=== PATIENT | male | born 1960 | race African-American/Black ===

== ENCOUNTER 2019-11-14 09:48 | Inpatient (IN) | payer OTHER ==
--- NOTE | 2019-11-14 10:39 | BHS.RME ---
Substance Use & Tx History - Substance Use History Alcohol Substance amount: 2-3 pints Frequency of use: Daily Substance route: Oral Date of Last Use: 11/13/19 Cocaine- Powder Substance amount: with crack, one gram Frequency of use: Daily Substance route: Smoking Date of Last Use: 11/13/19 Marijuana/Hashish Substance amount: 1/8th Frequency of use: Daily Substance route: Smoking Date of Last Use: 11/14/19 Nicotine Substance amount: 5-6 cigs Frequency of use: Daily Substance route: Smoking Date of Last Use: 11/14/19 Synthetic Cannabinoid Substance amount: one joint Frequency of use: Once a month Substance route: Smoking Date of Last Use: 11/12/19 PCP Substance amount: one joint Frequency of use: Once a month Substance route: Smoking Date of Last Use: 09/15/19 - Last Treatment Date of last treatment: 2013 Where was last treatment: Detox Physical/Psych/Mental Status - Behavior General Behavior: Increased activity (restlessness, agitation) Eye Contact: Normal - Cooperativeness Cooperativeness: Cooperative - Thinking Thought Processes: Tight Thought content: Future oriented - Physical Health Problems Is patient presently having any pain?: No Does patient presently have any injuries (include location): No Does patient currently have a fever: No CIWA Nausea/Vomitin-Mild Nausea/No Vomiting Muscle Tremors: 3 Anxiety: 3 Agitation: 4-Moderately Restless Paroxysmal Sweats: 1-Minimal Palms Moist Orientation: 0-Oriented Tacttile Disturbances: 0-None Auditory Disturbances: 0-None Visual Disturbances: 0-None Headache: 0-None Present CIWA-Ar Total Score: 12
[2019-11-14 11:40] VITALS: BMI 18.2
--- NOTE | 2019-11-14 12:07 | HP ---
CIWA Score Nausea/Vomitin-Mild Nausea/No Vomiting Muscle Tremors: 3 Anxiety: 3 Agitation: 4-Moderately Restless Paroxysmal Sweats: 1-Minimal Palms Moist Orientation: 0-Oriented Tacttile Disturbances: 0-None Auditory Disturbances: 0-None Visual Disturbances: 0-None Headache: 0-None Present CIWA-Ar Total Score: 12 - Admission Criteria OASAS Guidelines: Admission for Medically Managed Detox: Requires at least one of the followin. CIWA greater than 12 2. Seizures within the past 24 hours 3. Delirium tremens within the past 24 hours 4. Hallucinations within the past 24 hours 5. Acute intervention needed for co occurring medical disorder 6. Acute intervention needed for co occurring psychiatric disorder 7. Severe withdrawal that cannot be handled at a lower level of care (continued vomiting, continued diarrhea, abnormal vital signs) requiring intravenous medication and/or fluids 8. Admitting History and Physical - Admission History of Present Illness: Mr. Barros is a 59 yo man who presents to [facility] stating "I've got to stop using alcohol". He requests admission to detox. He was last here in 2013. 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 Cocaine- Powder Substance amount: with crack, one gram Frequency of use: Daily Substance route: Smoking Date of Last Use: 11/13/19 First use age 25 y Marijuana/Hashish Substance amount: 1/8th Frequency of use: Daily Substance route: Smoking Date of Last Use: 11/14/19 First use age 14 y Nicotine Substance amount: 5-6 cigs Frequency of use: Daily Substance route: Smoking Date of Last Use: 11/14/19 First use age 14 y Synthetic Cannabinoid Substance amount: one joint Frequency of use: Once a month Substance route: Smoking Date of Last Use: 11/12/19 PCP Substance amount: one joint Frequency of use: Once a month Substance route: Smoking Date of Last Use: 09/15/19 First use ag 58 y - Last Treatment Date of last treatment: 2013 Where was last treatment: Detox History Source: Patient Limitations to Obtaining History: No Limitations - Smoking History Smoking history: Current every day smoker Have you smoked in the past 12 months: Yes Aproximately how many cigarettes per day: 10 - Alcohol/Substance Use Hx Alcohol Use: Yes Admission ROS S - HPI Allergies/Adverse Reactions: Allergies Allergy/AdvReac Type Severity Reaction Status Date / Time Fish Containing Products Allergy Severe Difficulty Verified 11/14/19 11:33 Breathing Exam Limitations: No Limitations - Ebola screening Have you traveled outside of the country in the last 21 days: No Have you been sick,other than usual withdrawal symptoms: No Do you have a fever: No - Review of Systems Constitutional: Changes in sleep (trouble falling and staying asleep), Unintentional Wgt. Loss (60 lbs in one year) EENT: reports: Blurred Vision (uses glasses for distance, not with him), Other (no teeth) Respiratory: reports: No Symptoms reported Cardiac: reports: No Symptoms Reported GI: reports: No Symptoms Reported : reports: No Symptoms Reported Musculoskeletal: reports: Other (frostbite: lost middle and ring finger left hand) Integumentary: reports: No Symptoms Reported Neuro: reports: No Symptoms reported Endocrine: reports: No Symptoms Reported Hematology: reports: No Symptoms Reported Psychiatric: reports: No Sypmtoms Reported Patient History - Patient Medical History Hx Anemia: No Hx Asthma: No Hx Chronic Obstructive Pulmonary Disease (COPD): No Hx Cancer: No Hx Cardiac Disorders: Yes (High Cholestrol) Hx Congestive Heart Failure: No Hx Hypertension: Yes Hx Hypercholesterolemia: No Hx Pacemaker: No HX Cerebrovascular Accident: No Hx Seizures: No Hx Dementia: No Hx Diabetes: Yes Hx Gastrointestinal Disorders: No Hx Liver Disease: No Hx Genitourinary Disorders: No Hx Sexually Transmitted Disorders: No Hx Renal Disease (ESRD): No Hx Thyroid Disease: No Hx Human Immunodeficiency Virus (HIV): No (NEGATIVE HX) Hx Hepatitis C: No Hx Depression: No Hx Suicide Attempt: No Hx Bipolar Disorder: No Hx Schizophrenia: No - Patient Surgical History Past Surgical History: Yes Hx Neurologic Surgery: No Hx Cataract Extraction: No Hx Cardiac Surgery: No Hx Lung Surgery: No Hx Breast Surgery: No Hx Breast Biopsy: No Hx Abdominal Surgery: No Hx Appendectomy: No Hx Cholecystectomy: No Hx Genitourinary Surgery: No Hx Section: No Hx Orthopedic Surgery: No Other Surgical History: DUE TO FX OF FACIAL BONE IN 2013 AT [facility] Anesthesia Reaction: No - Reproductive History Patient : (n/a) - Smoking Cessation Smoking history: Current every day smoker Have you smoked in the past 12 months: Yes Aproximately how many cigarettes per day: 10 Cigars Per Day: 0 Hx Chewing Tobacco Use: No Initiated information on smoking cessation: Yes 'Breaking Loose' booklet given: 11/14/19 - Substances abused Alcohol Substance route: Oral Frequency: Daily Amount used: 1-2 pints Age of first use: 14 Date of last use: 11/13/19 Marijuana/Hashish Substance route: Smoking Frequency: Daily Amount used: 8th Age of first use: 14 Date of last use: 11/14/19 Admission Physical Exam BHS - Vital Signs Vital Signs: Vital Signs - 24 hr 11/14/19 11:37 Temperature 95.8 F L Pulse Rate 60 Respiratory 20 Rate Blood Pressure 156/106 H - Physical General Appearance: Yes: Mild Distress, Thin, Other (restless) HEENTM: Yes: EOMI, Hearing grossly Normal, Normocephalic, Normal Voice Respiratory: Yes: Lungs Clear, No Respiratory Distress, No Accessory Muscle Use Neck: Yes: Within Normal Limits, Supple Breast: Yes: Breast Exam Deferred Cardiology: Yes: Regular Rhythm, Regular Rate Abdominal: Yes: Normal Bowel Sounds, Non Tender, Flat, Soft Genitourinary: Yes: Other (deferred) Back: Yes: Normal Inspection Musculoskeletal: Yes: Gait Steady, Other (? scoliosis, leans to left when ambulating) Extremities: Yes: Normal Inspection, Non-Tender Neurological: Yes: Alert, Normal Response, Other (? tardive dyskinesia, excessive mouth movements) Integumentary: Yes: Normal Color, Dry, Warm - Diagnostic (1) Alcohol dependence with withdrawal, uncomplicated Current Visit: Yes Status: Acute Comment: 1. Admit to detox 2. Librium protocol 3. Routine labs (2) Cannabis abuse Current Visit: Yes Status: Acute Comment: 1. Substance use education (3) Nicotine dependence Current Visit: Yes Status: Acute Qualifiers: Nicotine product type: cigarettes Substance use status: uncomplicated Qualified Code(s): F17.210 - Nicotine dependence, cigarettes, uncomplicated Comment: 1. Nicotine replacement therapy 2. Smoking cessation handbook (4) Synthetic cannabinoid abuse Current Visit: Yes Status: Acute Comment: 1. Substance use education while in detox (5) PCP (phencyclidine) abuse Current Visit: Yes Status: Acute Comment: 1. substance use education (6) Diabetes Current Visit: Yes Status: Acute Comment: 1. glu checked in PWC: 101 2. will review outside medication 3. monitor glucose ac and hs (7) HTN (hypertension) Current Visit: Yes Status: Acute Qualifiers: Hypertension type: essential hypertension Qualified Code(s): I10 - Essential (primary) hypertension Comment: 1. monitor vitals 2. reconcile meds (8) Hyperlipidemia Current Visit: Yes Status: Acute Comment: 1. reconcile meds (9) Cocaine dependence Current Visit: No Status: Chronic Comment: 1. substance use education while on detox unit (10) Emphysema of lung Current Visit: No Status: Chronic (11) Abnormal weight loss Current Visit: Yes Status: Acute Comment: 1. supplement diet with Ensure Cleared for Admission S - Detox or Rehab [facility] Level of Care: Medically Managed Detox Regimen/Protocol: Librium Breathalyzer - Breathalyzer Breathalyzer: 0 Urine Drug Screen - Test Device Lot number: [id number] Expiration date: 06/06/21 - Control Is test valid?: Yes - Results Drug screen NEGATIVE: No Urine drug screen results: THC-Marijuana, LULÚ-Cocaine Inpatient Rehab Admission - Rehab Decision to Admit Inpatient rehab admission?: No
[2019-11-14] MEDS ORDERED: MENTHOL/PHENOL 1 EACH UD MM PRN (12:27)
[2019-11-14] MEDS ORDERED: MAG HYDROX/AL HYDROX/SIMETH 30 ML UNIT-DOSE CUP PO PRN (12:27)
[2019-11-14] MEDS ORDERED: METHOCARBAMOL 500 MG TABLET PO PRN (12:27)
[2019-11-14] MEDS ORDERED: chlordiazePOXIDE HCL 25 MG CAPSULE PO PRN (12:27)
[2019-11-14] MEDS ORDERED: NICOTINE POLACRILEX 2 MG GUM BUC PRN (12:27)
[2019-11-14] MEDS ORDERED: ONDANSETRON *ODT* 4 MG TABLET SL PRN (12:27)
[2019-11-14] MEDS ORDERED: MAGNESIUM HYDROX 2400MG/30ML ORAL SUSPENSION 30 ML CUP PO PRN (12:27)
[2019-11-14] MEDS ORDERED: IBUPROFEN 400 MG TABLET (FP) PO PRN (12:27)
[2019-11-14] MEDS ORDERED: MAGNESIUM CITRATE 300 ML BOTTLE PO PRN (12:27)
[2019-11-14] MEDS ORDERED: ACETAMINOPHEN 325 MG TABLET (FP) PO PRN ×2 (12:27)
[2019-11-14] MEDS ORDERED: BISMUTH SUBSALICYLATE 262 MG/15 ML BTL PO PRN (12:27)
[2019-11-14] MEDS: NIFEdipine E.R. 30 MG TABLET PO SCH (13:34)
[2019-11-14] MEDS: hydrOXYzine PAMOATE 25 MG CAPSULE (FP) PO SCH ×3 (13:36→22:49)
[2019-11-14] MEDS ORDERED: ALBUTEROL SO4 HFA INHALER IH SCH (14:00)
[2019-11-14 14:44] LABS: HEMOGLOBIN 12.1 GM/dL (11.7-16.9); MCH 31.2 pg (25.7-33.7); MCHC 33.7 g/dl (32.0-35.9); MEAN CELL VOLUME 92.6 fl (80-96); MEAN PLT VOLUME 7.9 fl (7.5-11.1); PLATELET COUNT 236 K/MM3 (134-434); RBC 3.89 M/mm3 (4.00-5.60); RDW 13.8 % (11.9-15.9); WHITE BLOOD COUNT 6.8 K/mm3 (4.0-10.0)
[2019-11-14] MEDS ORDERED: ALBUTEROL SO4 HFA INHALER IH PRN (14:44)
[2019-11-14 14:55] LABS: ALBUMIN 3.7 g/dl (3.4-5.0); BILIRUBIN,TOTAL 0.2 mg/dL (0.2-1); BLOOD UREA NITROGEN 17.5 mg/dL (7-18); CALCIUM 8.9 mg/dL (8.5-10.1); CREATININE 1.5 mg/dL (0.55-1.3); POTASSIUM 4.2 mmol/L (3.5-5.1)
[2019-11-14] MEDS ORDERED: MASKS NR ONE (17:37)
[2019-11-14] MEDS: chlordiazePOXIDE HCL 25 MG CAPSULE PO SCH ×2 (17:39→22:49)
[2019-11-14] MEDS: ATORVASTATIN CA 10 MG TABLET (FP) PO SCH (22:48)
[2019-11-14] MEDS: MELATONIN 5 MG TABLETS PO SCH (22:49)
[2019-11-14] MEDS: THIAMINE HCL 100 MG TABLET (FP) PO SCH (22:49)
[2019-11-15] MEDS: chlordiazePOXIDE HCL 25 MG CAPSULE PO SCH ×4 (06:34→22:50)
[2019-11-15] MEDS: hydrOXYzine PAMOATE 25 MG CAPSULE (FP) PO SCH ×5 (06:34→22:50)
--- NOTE | 2019-11-15 10:50 | PN ---
S CIWA - CIWA Score Nausea/Vomitin-Mild Nausea/No Vomiting Muscle Tremors: 2 Anxiety: 3 Agitation: 1-Slight > Activity Paroxysmal Sweats: No Perspiration Orientation: 0-Oriented Tacttile Disturbances: 0-None Auditory Disturbances: 0-None Visual Disturbances: 1-Very Mild Sensitivity Headache: 1-Very Mild CIWA-Ar Total Score: 9 S Progress Note (SOAP) Subjective: 59 years old male was admitted on 11/14/19 for alcohol withdrawal sx management treating with librium detox regiment bmi 18.3 glucerna 1 can po tid feels tired resting in bed limited conversation with staff Objective: 11/15/19 11:03 Vital Signs - 24 hr 11/14/19 11/14/19 11/14/19 11:37 12:31 12:53 Temperature 95.8 F L 97.3 F L Pulse Rate 60 64 Respiratory 20 18 Rate Blood Pressure 156/106 H 184/124 H O2 Sat by Pulse 100 96 Oximetry (%) 11/14/19 11/14/19 11/15/19 17:07 20:32 09:00 Temperature 97.7 F 97.5 F L 98.0 F Pulse Rate 62 62 58 L Respiratory 20 18 18 Rate Blood Pressure 176/92 H 151/95 152/103 H O2 Sat by Pulse 96 100 Oximetry (%) Laboratory Tests 11/14/19 11/14/19 11/14/19 11:25 11:25 11:25 WBC 6.8 RBC 3.89 L Hgb 12.1 Hct 36.0 MCV 92.6 MCH 31.2 MCHC 33.7 RDW 13.8 Plt Count 236 MPV 7.9 Sodium 139 Potassium 4.2 Chloride 106 Carbon Dioxide 30 Anion Gap 2 L BUN 17.5 Creatinine 1.5 H Est GFR (CKD-EPI)AfAm 58.22 Est GFR (CKD-EPI)NonAf 50.23 POC Glucometer Random Glucose 98 Calcium 8.9 Total Bilirubin 0.2 AST 19 ALT 17 Alkaline Phosphatase 83 Total Protein 8.0 Albumin 3.7 Syphilis Serology COVID-19 (JERRICA) Hep C Ab Diagnostic HIV Ag/Ab Combo Qual Negative 11/14/19 11/14/19 11/14/19 11:25 11:25 11:25 WBC RBC Hgb Hct MCV MCH MCHC RDW Plt Count MPV Sodium Potassium Chloride Carbon Dioxide Anion Gap BUN Creatinine Est GFR (CKD-EPI)AfAm Est GFR (CKD-EPI)NonAf POC Glucometer Random Glucose Calcium Total Bilirubin AST ALT Alkaline Phosphatase Total Protein Albumin Syphilis Serology Non-reactive COVID-19 (JERRICA) Not detected Hep C Ab Diagnostic <0.1 HIV Ag/Ab Combo Qual 11/14/19 11/14/19 12:08 16:46 WBC RBC Hgb Hct MCV MCH MCHC RDW Plt Count MPV Sodium Potassium Chloride Carbon Dioxide Anion Gap BUN Creatinine Est GFR (CKD-EPI)AfAm Est GFR (CKD-EPI)NonAf POC Glucometer 101 138 Random Glucose Calcium Total Bilirubin AST ALT Alkaline Phosphatase Total Protein Albumin Syphilis Serology COVID-19 (JERRICA) Hep C Ab Diagnostic HIV Ag/Ab Combo Qual bp elevation 11/15/19 11:05 lab noted 11/15/19 11:19 continue procardia clonidine 0.1 mg po prn Assessment: 11/15/19 11:19 alcohol withdrawal Plan: librium regiment
[2019-11-15] MEDS: NIFEdipine E.R. 30 MG TABLET PO SCH (11:07)
[2019-11-15] MEDS: PRENATAL VITAMINS W/ FOLIC ACID TABLET (FP) PO SCH (11:10)
[2019-11-15] MEDS: NICOTINE 7 MG/24 HOURS TOPICAL PATCH TD SCH (11:10)
[2019-11-15] MEDS ORDERED: cloNIDine HCL 0.1 MG TABLET PO PRN (11:17)
--- NOTE | 2019-11-15 12:35 | CONSULT ---
[facility] Psychiatric Consult - Data Date of interview: 11/15/19 Admission source: [facility] Identifying data: Revisit to [facility] and admission to [address] [place] [address] for this 59 y/o AA male self-referred for detoxification treatment. EVELINE issues : alcohol, cannabis/K2, cocaine, phencyclidine, nicotine. Patient is single, no dependents, domiciled, unemployed and supported on SSI benefits. Substance Abuse History: Discussed with the patient. EVELINE profile as follows : Alcohol. Substance amount: 2-3 pints. Frequency of use: Daily. Substance route: Oral. Date of Last Use: 11/13/19. First use age 14 y. No seizures. Blackout months ago. 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 Cocaine- Powder. Substance amount: with crack, one gram. Frequency of use: Daily. Substance route: Smoking. Date of Last Use: 11/13/19. First use age 25 y. Marijuana/Hashish. Substance amount: /. Frequency of use: Daily. Substance route: Smoking. Date of Last Use: 11/14/19. First use age 14 y. Nicotine. Substance amount: 5-6 cigs. Frequency of use: Daily. Substance rout e: Smoking. Date of Last Use: 11/14/19. First use age 14 y. Synthetic Cannabinoid. Substance amount: one joint. Frequency of use: Once a month. Substance route: Smoking. Date of Last Use: 11/12/19. PCP. Substance amount: one joint. Frequency of use: Once a month. Substance route: Smoking. Date of Last Use: 09/15/19. First use ag 58 y. - Last Treatment. Date of last treatment: 2013. Where was last treatment: Detox. History Source: Patient. Limitations to Obtaining History: No Limitations. - Smoking History. Smoking history: Current every day smoker. Have you smoked in the past 12 months: Yes. Approximately how many cigarettes per day: 10. - Alcohol/Substance Use. Hx Alcohol Use: Yes. History of multiple EVELINE treatment failures. Medical History: Medical profile is remarkable for diabetes mellitus, dyslipidemia, hypertension, emphysema and a distant history of surgeries (fracture of right wrist + facial bone). Psychiatric History: Patient is a marginally cooperative and informative historian. He does admit to a history of psychiatric hospitalizations but he is unable to recall names of institutions. Records ([facility]) [facility]. Mr Papo states that he has been diagnosed with schizophrenia and followed at the [facility]PD clinic in [facility], under the care of Dr Hauser, (medication management : mirtazapine, trazodone + haldol + cogentin). Pattern of adherence is unknown : questionable at best. Patient denies history of suicide attempts. Physical/Sexual Abuse/Trauma History: Patient denies. Additional Comment: Urine drug screen results: THC-Marijuana, LULÚ-Cocaine. Noted. Mental Status Exam - Mental Status Exam Alert and Oriented to: Time, Place, Person Cognitive Function: Grossly Intact Patient Appearance: Unkempt, Disheveled Mood: Nervous, Withdrawn, Irritable Affect: Mood Congruent, Constricted Patient Behavior: Fatigued, Guarded Speech Pattern: Clear Voice Loudness: Normal Thought Process: Goal Oriented Thought Disorder: Bizarre Hallucinations: Denies Suicidal Ideation: Denies Homicidal Ideation: Denies Insight/Judgement: Poor Sleep: Poorly, Difficulty falling asleep Appetite: Good Gait/Station: Other (not observed out of bed) Psychiatric Findings - Problem List ([place] 1, 2,3) (1) Alcohol dependence with withdrawal, uncomplicated Current Visit: Yes Status: Acute Comment: 1. Admit to detox 2. Librium protocol 3. Routine labs (2) Marijuana dependence Current Visit: Yes Status: Chronic (3) Cocaine dependence Current Visit: Yes Status: Chronic Comment: 1. substance use education while on detox unit (4) Nicotine dependence Current Visit: Yes Status: Acute Qualifiers: Nicotine product type: cigarettes Substance use status: uncomplicated Qualified Code(s): F17.210 - Nicotine dependence, cigarettes, uncomplicated Comment: 1. Nicotine replacement therapy 2. Smoking cessation handbook (5) PCP (phencyclidine) abuse Current Visit: Yes Status: Chronic Comment: 1. substance use education (6) Synthetic cannabinoid abuse Current Visit: Yes Status: Chronic Comment: 1. Substance use education while in detox (7) Schizoaffective disorder Current Visit: Yes Status: Chronic (8) Non-compliance Current Visit: Yes Status: Chronic Comment: Non adherence to OPD care. - Initial Treatment Plan Initial Treatment Plan: Street Vendor attempted to contact Dr Hauser at [phone] for collateral information (verification of medications) : not available. Records ([facility]) revisited. Psychoeducation. Sleep hygiene. Detoxification in progress. Medications resumed (with patient's consent) as : haldol 2 mg po bid + cogentin 0.5 mg po daily + trazodone 15 mg po hs. Side effects/benefits of these molecules are discussed with the patient. Agreement verbalized by patient. Observation.
[2019-11-15] MEDS: LISINOPRIL 20 MG TABLET (FP) PO SCH (15:58)
[2019-11-15] MEDS ORDERED: MASKS NR ONE (19:58)
[2019-11-15] MEDS: ATORVASTATIN CA 10 MG TABLET (FP) PO SCH (22:47)
[2019-11-15] MEDS: THIAMINE HCL 100 MG TABLET (FP) PO SCH (22:47)
[2019-11-15] MEDS: MELATONIN 5 MG TABLETS PO SCH (22:47)
[2019-11-16] MEDS: chlordiazePOXIDE HCL 25 MG CAPSULE PO SCH ×4 (06:32→23:23)
[2019-11-16] MEDS: hydrOXYzine PAMOATE 25 MG CAPSULE (FP) PO SCH ×5 (06:32→23:23)
[2019-11-16] MEDS: NICOTINE 7 MG/24 HOURS TOPICAL PATCH TD SCH (10:37)
[2019-11-16] MEDS: PRENATAL VITAMINS W/ FOLIC ACID TABLET (FP) PO SCH (10:37)
[2019-11-16] MEDS: LISINOPRIL 20 MG TABLET (FP) PO SCH (10:41)
[2019-11-16] MEDS: NIFEdipine E.R. 30 MG TABLET PO SCH (10:42)
--- NOTE | 2019-11-16 11:58 | PN ---
[facility] CIWA - CIWA Score Nausea/Vomitin-Mild Nausea/No Vomiting Muscle Tremors: 2 Anxiety: 2 Agitation: 2 Paroxysmal Sweats: No Perspiration Orientation: 0-Oriented Tacttile Disturbances: 1-Very Mild Itch/Numbness Auditory Disturbances: 0-None Visual Disturbances: 0-None Headache: 2-Mild CIWA-Ar Total Score: 10 S Progress Note (SOAP) Subjective: alert,irritable,anxious,interrupted sleep,tremor,aching pain Objective: 11/16/19 17:09 Vital Signs Temperature 97.8 F 11/16/19 12:42 Pulse Rate 58 L 11/16/19 12:42 Respiratory Rate 18 11/16/19 12:42 Blood Pressure 125/80 11/16/19 12:42 O2 Sat by Pulse Oximetry (%) 99 11/16/19 12:42 Laboratory Last Values WBC 6.8 K/mm3 (4.0-10.0) 11/14/19 11:25 RBC 3.89 M/mm3 (4.00-5.60) L 11/14/19 11:25 Hgb 12.1 GM/dL (11.7-16.9) 11/14/19 11:25 Hct 36.0 % (35.4-49) 11/14/19 11:25 MCV 92.6 fl (80-96) 11/14/19 11:25 MCH 31.2 pg (25.7-33.7) 11/14/19 11:25 MCHC 33.7 g/dl (32.0-35.9) 11/14/19 11:25 RDW 13.8 % (11.9-15.9) 11/14/19 11:25 Plt Count 236 K/MM3 (134-434) 11/14/19 11:25 MPV 7.9 fl (7.5-11.1) 11/14/19 11:25 Sodium 139 mmol/L (136-145) 11/14/19 11:25 Potassium 4.2 mmol/L (3.5-5.1) 11/14/19 11:25 Chloride 106 mmol/L (98-107) 11/14/19 11:25 Carbon Dioxide 30 mmol/L (21-32) 11/14/19 11:25 Anion Gap 2 MMOL/L (8-16) L 11/14/19 11:25 BUN 17.5 mg/dL (7-18) 11/14/19 11:25 Creatinine 1.5 mg/dL (0.55-1.3) H 11/14/19 11:25 Est GFR (CKD-EPI)AfAm 58.22 11/14/19 11:25 Est GFR (CKD-EPI)NonAf 50.23 11/14/19 11:25 POC Glucometer 101 UNITS (80-120) 11/16/19 16:22 Random Glucose 98 mg/dL (74-106) 11/14/19 11:25 Calcium 8.9 mg/dL (8.5-10.1) 11/14/19 11:25 Total Bilirubin 0.2 mg/dL (0.2-1) 11/14/19 11:25 AST 19 U/L (15-37) 11/14/19 11:25 ALT 17 U/L (13-61) 11/14/19 11:25 Alkaline Phosphatase 83 U/L (45-117) 11/14/19 11:25 Total Protein 8.0 g/dl (6.4-8.2) 11/14/19 11:25 Albumin 3.7 g/dl (3.4-5.0) 11/14/19 11:25 Syphilis Serology Non-reactive (NONREACTIVE) 11/14/19 11:25 COVID-19 (JERRICA) Not detected (Not Detected) 11/14/19 11:25 Hep C Ab Diagnostic <0.1 s/co ratio (0.0-0.9) 11/14/19 11:25 HIV Ag/Ab Combo Qual Negative (NEGATIVE) 11/14/19 11:25 Assessment: 11/16/19 17:10 withdrawal symptom Plan: continue detox librium regimen,bmp repeat in am
[2019-11-16] MEDS: MELATONIN 5 MG TABLETS PO SCH (23:23)
[2019-11-16] MEDS: THIAMINE HCL 100 MG TABLET (FP) PO SCH (23:23)
[2019-11-16] MEDS: ATORVASTATIN CA 10 MG TABLET (FP) PO SCH (23:23)
[2019-11-17] MEDS ORDERED: chlordiazePOXIDE HCL 10 MG CAPSULE PO PRN
[2019-11-17] MEDS: chlordiazePOXIDE HCL 10 MG CAPSULE PO SCH ×2 (06:43→10:34)
[2019-11-17] MEDS: hydrOXYzine PAMOATE 25 MG CAPSULE (FP) PO SCH ×2 (06:43→10:34)
--- NOTE | 2019-11-17 09:16 | PN ---
S CIWA - CIWA Score Nausea/Vomitin-No Nausea/No Vomiting Muscle Tremors: None Anxiety: 2 Agitation: 0-Normal Activity Paroxysmal Sweats: No Perspiration Orientation: 0-Oriented Tacttile Disturbances: 0-None Auditory Disturbances: 0-None Visual Disturbances: 0-None Headache: 0-None Present CIWA-Ar Total Score: 2 BHS Progress Note (SOAP) Subjective: Patient was examined by bedside. Patient was laying in bed and had been eating lunch. Pt. complains of anxiety. No further questions or complaints noted. Objective: 11/17/19 09:15 PE: General: No acute distress, alert and awake MSK: gait normal, pelvis stable, normal range of motion Skin: No lesions or abrasions skin color normal. MS: responds appropriately to questions, oriented x3, pleasant demeanor Last Vital Signs Temp Pulse Resp BP Pulse Ox 97.0 F L 74 18 121/88 100 11/17/19 08:15 11/17/19 08:15 11/17/19 08:15 11/17/19 08:15 11/17/19 08:15 CBC,CMP WBC 6.8 K/mm3 (4.0-10.0) 11/14/19 11:25 RBC 3.89 M/mm3 (4.00-5.60) L 11/14/19 11:25 Hgb 12.1 GM/dL (11.7-16.9) 11/14/19 11:25 Hct 36.0 % (35.4-49) 11/14/19 11:25 MCV 92.6 fl (80-96) 11/14/19 11:25 MCH 31.2 pg (25.7-33.7) 11/14/19 11:25 MCHC 33.7 g/dl (32.0-35.9) 11/14/19 11:25 RDW 13.8 % (11.9-15.9) 11/14/19 11:25 Plt Count 236 K/MM3 (134-434) 11/14/19 11:25 MPV 7.9 fl (7.5-11.1) 11/14/19 11:25 Sodium 139 mmol/L (136-145) 11/14/19 11:25 Potassium 4.2 mmol/L (3.5-5.1) 11/14/19 11:25 Chloride 106 mmol/L (98-107) 11/14/19 11:25 Carbon Dioxide 30 mmol/L (21-32) 11/14/19 11:25 Anion Gap 2 MMOL/L (8-16) L 11/14/19 11:25 BUN 17.5 mg/dL (7-18) 11/14/19 11:25 Creatinine 1.5 mg/dL (0.55-1.3) H 11/14/19 11:25 Est GFR (CKD-EPI)AfAm 58.22 11/14/19 11:25 Est GFR (CKD-EPI)NonAf 50.23 11/14/19 11:25 POC Glucometer 93 UNITS (80-120) 11/17/19 06:41 Random Glucose 98 mg/dL (74-106) 11/14/19 11:25 Calcium 8.9 mg/dL (8.5-10.1) 11/14/19 11:25 Total Bilirubin 0.2 mg/dL (0.2-1) 11/14/19 11:25 AST 19 U/L (15-37) 11/14/19 11:25 ALT 17 U/L (13-61) 11/14/19 11:25 Alkaline Phosphatase 83 U/L (45-117) 11/14/19 11:25 Total Protein 8.0 g/dl (6.4-8.2) 11/14/19 11:25 Albumin 3.7 g/dl (3.4-5.0) 11/14/19 11:25 Current Medications Generic Name Dose Route Start Last Admin Trade Name Freq PRN Reason Stop Dose Admin Acetaminophen 650 mg 11/14/19 12:27 Tylenol - PO Q6H PRN PAIN LEVEL 4 - 6 Acetaminophen 650 mg 11/14/19 12:27 Tylenol - PO Q6H PRN FEVER Al Hydroxide/Mg Hydroxide 30 ml 11/14/19 12:27 Mylanta Oral Suspension - PO Q6H PRN DYSPEPSIA Albuterol Sulfate 1 puff 11/14/19 14:44 Ventolin Hfa Inhaler - IH QID PRN ASTHMA Atorvastatin Calcium 10 mg 11/14/19 22:00 11/16/19 23:23 Lipitor - PO Not Given HS KENY Bismuth Subsalicylate 30 ml 11/14/19 12:27 Pepto-Bismol Liquid - PO Q1H PRN DIARRHEA Chlordiazepoxide HCl 10 mg 11/17/19 05:00 11/17/19 06:43 Librium - PO 11/17/19 23:01 Not Given Q4C-SZC KENY Chlordiazepoxide HCl 10 mg 11/18/19 05:00 Librium - PO 11/18/19 17:01 Q12H KENY Chlordiazepoxide HCl 10 mg 11/17/19 00:00 Librium - PO 11/18/19 00:00 Q4H PRN WITHDRAWAL(CONT SUBST) Chlordiazepoxide HCl 10 mg 11/19/19 05:00 Librium - PO 11/19/19 05:01 ONCE@0500 ONE Clonidine 0.1 mg 11/15/19 11:17 11/15/19 13:15 Catapres - PO 0.1 mg Q6H PRN Administration HYPERTENSION Eucalyptus/Menthol/Phenol/Sorbitol 1 each 11/14/19 12:27 Cepastat Lozenge - MM 11/20/19 12:27 Q4H PRN SORE THROAT Hydroxyzine Pamoate 25 mg 11/14/19 14:00 11/17/19 06:43 Vistaril - PO 11/20/19 12:27 Not Given Q4HWA [facility] Ibuprofen 400 mg 11/14/19 12:27 11/14/19 17:42 Motrin - PO 400 mg Q6H PRN Administration PAIN LEVEL 1 - 3 Lisinopril 20 mg 11/15/19 15:15 11/16/19 10:41 Prinivil PO 20 mg DAILY [facility] Administration Magnesium Citrate 300 ml 11/14/19 12:27 Citroma - PO Q48H PRN CONSTIPATION Magnesium Hydroxide 30 ml 11/14/19 12:27 Milk Of Magnesia - PO PRN PRN CONSTIPATION Melatonin 5 mg 11/14/19 22:00 11/16/19 23:23 Melatonin PO Not Given HS [facility] Metformin HCl 1,000 mg 11/15/19 16:30 11/16/19 16:50 Glucophage Xr - PO 1,000 mg DAILY@1630 KENY Administration Methocarbamol 500 mg 11/14/19 12:27 Robaxin - PO 11/20/19 12:27 Q6H PRN MUSCLE SPASMS Nicotine 7 mg 11/15/19 10:00 11/16/19 10:37 Nicoderm Patch - TD Not Given DAILY KENY Nicotine Polacrilex 2 mg 11/14/19 12:27 Nicorette Gum - BUC Q2H PRN NICOTINE REPLACEMENT RX Nifedipine 30 mg 11/14/19 12:45 11/16/19 10:42 Procardia Xl - PO 30 mg DAILY KENY Administration Ondansetron HCl 4 mg 11/14/19 12:27 Zofran Odt - SL Q8H PRN Nausea/Vomiting Multivit/Folic Acid/Iron 1 tab 11/15/19 10:00 11/16/19 10:37 Vitamins (Sjr) - PO 1 tab DAILY KENY Administration Thiamine HCl 100 mg 11/14/19 22:00 11/16/19 23:23 Vitamin B1 - PO Not Given HS KENY Discontinued Medications Generic Name Dose Route Start Last Admin Trade Name Freq PRN Reason Stop Dose Admin Albuterol Sulfate 1 puff 11/14/19 14:00 11/14/19 13:36 Ventolin Hfa Inhaler - IH Not Given QID KENY Chlordiazepoxide HCl 50 mg 11/14/19 17:00 11/15/19 22:50 Librium - PO 11/15/19 23:01 Not Given [id number] KENY Chlordiazepoxide HCl 25 mg 11/16/19 05:00 11/16/19 23:23 Librium - PO 11/16/19 23:01 Not Given [id number] KENY Chlordiazepoxide HCl 25 mg 11/14/19 12:27 Librium - PO 11/16/19 23:59 Q4H PRN WITHDRAWAL(CONT SUBST) Metformin HCl 1,000 mg 11/14/19 14:30 11/14/19 16:01 Glucophage Xr - PO 1,000 mg DAILY@1430 KENY Administration Tuberculin PPD 5 units 11/14/19 12:27 11/14/19 15:52 Tubersol ([facility] Only) 5ml Vial ID 11/14/19 12:28 Not Given ONCE ONE Assessment: 11/17/19 09:15 Assessment: Patient is in detox for alcohol on librium protocol. Plan: Plan: Continue librium protocol.
[2019-11-17] MEDS: NICOTINE 7 MG/24 HOURS TOPICAL PATCH TD SCH (10:34)
[2019-11-17] MEDS: LISINOPRIL 20 MG TABLET (FP) PO SCH (10:34)
[2019-11-17] MEDS: NIFEdipine E.R. 30 MG TABLET PO SCH (10:34)
[2019-11-17] MEDS: PRENATAL VITAMINS W/ FOLIC ACID TABLET (FP) PO SCH (10:34)
--- NOTE | 2019-11-17 13:28 | DS ---
[facility] Detox Discharge Summary Admission Date: 11/14/19 Discharge Date: 11/17/19 - History Pertinent Past History: History of Present Illness: Mr. Barros is a 59 yo man who presented to [facility] on 11/13 stating "I've got to stop using alcohol". He requests admission to detox. He was last here in 2013. PMH: DM, HTN, HL, emphysema PSH/Psych/Legal: none SOC: lives in his own place in the [place] Substance Use History Alcohol Substance amount: 2-3 pints Frequency of use: Daily Substance route: Oral Date of Last Use: 11/13/19 First use age 14 y No seizures Blackout months ago Admits to eye skiver hand Cocaine- Powder Substance amount: with crack, one gram Frequency of use: Daily Substance route: Smoking Date of Last Use: 11/13/19 First use age 25 y Marijuana/Hashish Substance amount: 1/ Frequency of use: Daily Substance route: Smoking Date of Last Use: 11/14/19 First use age 14 y Nicotine Substance amount: 5-6 cigs Frequency of use: Daily Substance route: Smoking Date of Last Use: 11/14/19 First use age 14 y Synthetic Cannabinoid Substance amount: one joint Frequency of use: Once a month Substance route: Smoking Date of Last Use: 11/12/19 PCP Substance amount: one joint Frequency of use: Once a month Substance route: Smoking Date of Last Use: 09/15/19 First use ag 58 y - Last Treatment Date of last treatment: 2013 Where was last treatment: Detox History Source: Patient - Physical Exam Results Vital Signs: Vital Signs Temperature 97.8 F 11/17/19 09:15 Pulse Rate 62 11/17/19 09:15 Respiratory Rate 18 11/17/19 09:15 Blood Pressure 108/71 11/17/19 09:15 O2 Sat by Pulse Oximetry (%) 100 11/17/19 09:15 Pertinent Admission Physical Exam Findings: PE Gnl: WD, slender, in no distress MS: awake, alert CN: oral tardive Motor: moves limbs well Gait: steady with leaning to side likely from dyskinesia Laboratory Tests 11/14/19 11/14/19 11/14/19 11:25 11:25 11:25 WBC 6.8 RBC 3.89 L Hgb 12.1 Hct 36.0 MCV 92.6 MCH 31.2 MCHC 33.7 RDW 13.8 Plt Count 236 MPV 7.9 Sodium 139 Potassium 4.2 Chloride 106 Carbon Dioxide 30 Anion Gap 2 L BUN 17.5 Creatinine 1.5 H Est GFR (CKD-EPI)AfAm 58.22 Est GFR (CKD-EPI)NonAf 50.23 POC Glucometer Random Glucose 98 Calcium 8.9 Total Bilirubin 0.2 AST 19 ALT 17 Alkaline Phosphatase 83 Total Protein 8.0 Albumin 3.7 Syphilis Serology COVID-19 (JERRICA) Hep C Ab Diagnostic HIV Ag/Ab Combo Qual Negative 11/14/19 11/14/19 11/14/19 11:25 11:25 11:25 WBC RBC Hgb Hct MCV MCH MCHC RDW Plt Count MPV Sodium Potassium Chloride Carbon Dioxide Anion Gap BUN Creatinine Est GFR (CKD-EPI)AfAm Est GFR (CKD-EPI)NonAf POC Glucometer Random Glucose Calcium Total Bilirubin AST ALT Alkaline Phosphatase Total Protein Albumin Syphilis Serology Non-reactive COVID-19 (JERRICA) Not detected Hep C Ab Diagnostic <0.1 HIV Ag/Ab Combo Qual 11/14/19 11/14/19 11/15/19 12:08 16:46 11:36 WBC RBC Hgb Hct MCV MCH MCHC RDW Plt Count MPV Sodium Potassium Chloride Carbon Dioxide Anion Gap BUN Creatinine Est GFR (CKD-EPI)AfAm Est GFR (CKD-EPI)NonAf POC Glucometer 101 138 154 Random Glucose Calcium Total Bilirubin AST ALT Alkaline Phosphatase Total Protein Albumin Syphilis Serology COVID-19 (JERRICA) Hep C Ab Diagnostic HIV Ag/Ab Combo Qual 11/15/19 11/15/19 11/16/19 16:45 20:57 11:22 WBC RBC Hgb Hct MCV MCH MCHC RDW Plt Count MPV Sodium Potassium Chloride Carbon Dioxide Anion Gap BUN Creatinine Est GFR (CKD-EPI)AfAm Est GFR (CKD-EPI)NonAf POC Glucometer 115 112 104 Random Glucose Calcium Total Bilirubin AST ALT Alkaline Phosphatase Total Protein Albumin Syphilis Serology COVID-19 (JERRICA) Hep C Ab Diagnostic HIV Ag/Ab Combo Qual 11/16/19 11/16/19 11/17/19 16:22 21:15 06:41 WBC RBC Hgb Hct MCV MCH MCHC RDW Plt Count MPV Sodium Potassium Chloride Carbon Dioxide Anion Gap BUN Creatinine Est GFR (CKD-EPI)AfAm Est GFR (CKD-EPI)NonAf POC Glucometer 101 92 93 Random Glucose Calcium Total Bilirubin AST ALT Alkaline Phosphatase Total Protein Albumin Syphilis Serology COVID-19 (JERRICA) Hep C Ab Diagnostic HIV Ag/Ab Combo Qual 11/17/19 11:34 WBC RBC Hgb Hct MCV MCH MCHC RDW Plt Count MPV Sodium Potassium Chloride Carbon Dioxide Anion Gap BUN Creatinine Est GFR (CKD-EPI)AfAm Est GFR (CKD-EPI)NonAf POC Glucometer 136 Random Glucose Calcium Total Bilirubin AST ALT Alkaline Phosphatase Total Protein Albumin Syphilis Serology COVID-19 (JERRICA) Hep C Ab Diagnostic HIV Ag/Ab Combo Qual Home Medication List Medication Instructions Recorded Confirmed Type Albuterol Sulfate Inhaler - 1 - 2 inh PO QID 01/29/14 11/14/19 History [Ventolin HFA Inhaler -] Atorvastatin Ca [Lipitor] 10 mg PO HS 11/14/19 11/14/19 History Benztropine Mesylate [Cogentin -] 0.5 mg PO DAILY 11/14/19 11/14/19 History Clonidine HCl [Catapres] 0.2 mg PO DAILY 11/14/19 11/14/19 History Haloperidol [Haldol -] 5 mg PO BID 11/14/19 11/14/19 History Ipratropium [place] [Atrovent Hfa] 12.9 gm IH PRN PRN 11/14/19 11/14/19 History Lisinopril/Hydrochlorothiazide 1 each PO DAILY 11/14/19 11/14/19 History [Lisinopril-Hctz 20-25 mg Tab] Mirtazapine [Remeron -] 15 mg PO HS 11/14/19 11/14/19 History Nifedipine [Procardia Xl] 30 mg PO DAILY 11/14/19 11/14/19 History Trazodone HCl 150 mg PO HS 11/14/19 11/14/19 History metFORMIN HCL [Metformin HCl ER] 1,000 mg PO DAILY 11/14/19 11/14/19 History Active Medications Generic Name Dose Route Start Last Admin Trade Name Freq PRN Reason Stop Dose Admin Acetaminophen 650 mg 11/14/19 12:27 Tylenol - PO Q6H PRN PAIN LEVEL 4 - 6 Acetaminophen 650 mg 11/14/19 12:27 Tylenol - PO Q6H PRN FEVER Al Hydroxide/Mg Hydroxide 30 ml 11/14/19 12:27 Mylanta Oral Suspension - PO Q6H PRN DYSPEPSIA Albuterol Sulfate 1 puff 11/14/19 14:44 Ventolin Hfa Inhaler - IH QID PRN ASTHMA Atorvastatin Calcium 10 mg 11/14/19 22:00 11/16/19 23:23 Lipitor - PO Not Given HS KENY Bismuth Subsalicylate 30 ml 11/14/19 12:27 Pepto-Bismol Liquid - PO Q1H PRN DIARRHEA Chlordiazepoxide HCl 10 mg 11/17/19 05:00 11/17/19 10:34 Librium - PO 11/17/19 23:01 10 mg [id number] KENY Administration Chlordiazepoxide HCl 10 mg 11/18/19 05:00 Librium - PO 11/18/19 17:01 Q12H KENY Chlordiazepoxide HCl 10 mg 11/17/19 00:00 Librium - PO 11/18/19 00:00 Q4H PRN WITHDRAWAL(CONT SUBST) Chlordiazepoxide HCl 10 mg 11/19/19 05:00 Librium - PO 11/19/19 05:01 ONCE@0500 ONE Clonidine 0.1 mg 11/15/19 11:17 11/15/19 13:15 Catapres - PO 0.1 mg Q6H PRN Administration HYPERTENSION Eucalyptus/Menthol/Phenol/Sorbitol 1 each 11/14/19 12:27 Cepastat Lozenge - MM 11/20/19 12:27 Q4H PRN SORE THROAT Hydroxyzine Pamoate 25 mg 11/14/19 14:00 11/17/19 10:34 Vistaril - PO 11/20/19 12:27 25 mg Q4HWA KENY Administration Ibuprofen 400 mg 11/14/19 12:27 11/14/19 17:42 Motrin - PO 400 mg Q6H PRN Administration PAIN LEVEL 1 - 3 Lisinopril 20 mg 11/15/19 15:15 11/17/19 10:34 Prinivil PO 20 mg DAILY KENY Administration Magnesium Citrate 300 ml 11/14/19 12:27 Citroma - PO Q48H PRN CONSTIPATION Magnesium Hydroxide 30 ml 11/14/19 12:27 Milk Of Magnesia - PO PRN PRN CONSTIPATION Melatonin 5 mg 11/14/19 22:00 11/16/19 23:23 Melatonin PO Not Given HS [facility] Metformin HCl 1,000 mg 11/15/19 16:30 11/16/19 16:50 Glucophage Xr - PO 1,000 mg DAILY@1630 KENY Administration Methocarbamol 500 mg 11/14/19 12:27 Robaxin - PO 11/20/19 12:27 Q6H PRN MUSCLE SPASMS Nicotine 7 mg 11/15/19 10:00 11/17/19 10:34 Nicoderm Patch - TD Not Given DAILY KENY Nicotine Polacrilex 2 mg 11/14/19 12:27 Nicorette Gum - BUC Q2H PRN NICOTINE REPLACEMENT RX Nifedipine 30 mg 11/14/19 12:45 11/17/19 10:34 Procardia Xl - PO 30 mg DAILY KENY Administration Ondansetron HCl 4 mg 11/14/19 12:27 Zofran Odt - SL Q8H PRN Nausea/Vomiting Multivit/Folic Acid/Iron 1 tab 11/15/19 10:00 11/17/19 10:34 Vitamins (Sjr) - PO 1 tab DAILY KENY Administration Thiamine HCl 100 mg 11/14/19 22:00 11/16/19 23:23 Vitamin B1 - PO Not Given HS KENY - Treatment Hospital Course: Detox Protocol Followed, Detoxed Safely, Responded well, Discharged Condition Good, Rehab Referral Accepted Patient has Accepted a Rehab Referral to: [facility] - Medication Discharge Medications: Ambulatory Orders Albuterol Sulfate Inhaler - [Ventolin HFA Inhaler -] 1 - 2 inh PO QID 01/29/14 Atorvastatin Ca [Lipitor] 10 mg PO HS 11/14/19 Benztropine Mesylate [Cogentin -] 0.5 mg PO DAILY 11/14/19 Clonidine HCl [Catapres] 0.2 mg PO DAILY 11/14/19 Haloperidol [Haldol -] 5 mg PO BID 11/14/19 Ipratropium [place] [Atrovent Hfa] 12.9 gm IH PRN PRN 11/14/19 Lisinopril/Hydrochlorothiazide [Lisinopril-Hctz 20-25 mg Tab] 1 each PO DAILY 11/14/19 Mirtazapine [Remeron -] 15 mg PO HS 11/14/19 Nifedipine [Procardia Xl] 30 mg PO DAILY 11/14/19 Trazodone HCl 150 mg PO HS 11/14/19 metFORMIN HCL [Metformin HCl ER] 1,000 mg PO DAILY 11/14/19 - Diagnosis (1) Alcohol dependence with withdrawal, uncomplicated Current Visit: Yes Status: Acute (2) Cannabis abuse Current Visit: Yes Status: Acute (3) Nicotine dependence Current Visit: Yes Status: Acute Qualifiers: Nicotine product type: cigarettes Substance use status: uncomplicated Qualified Code(s): F17.210 - Nicotine dependence, cigarettes, uncomplicated (4) Synthetic cannabinoid abuse Current Visit: Yes Status: Chronic (5) PCP (phencyclidine) abuse Current Visit: Yes Status: Chronic (6) Diabetes Current Visit: Yes Status: Acute (7) HTN (hypertension) Current Visit: Yes Status: Acute Qualifiers: Hypertension type: essential hypertension Qualified Code(s): I10 - Essential (primary) hypertension (8) Hyperlipidemia Current Visit: Yes Status: Acute (9) Cocaine dependence Current Visit: Yes Status: Chronic (10) Emphysema of lung Current Visit: No Status: Chronic (11) Abnormal weight loss Current Visit: Yes Status: Acute - AMA Did Patient Leave Against Medical Advice: No
[2019-11-17 13:35] VITALS: BP 104/68; PULSE 89; TEMP 97.2
[2019-11-18] MEDS ORDERED: chlordiazePOXIDE HCL 10 MG CAPSULE PO SCH (05:00)
[2019-11-19] MEDS ORDERED: chlordiazePOXIDE HCL 10 MG CAPSULE PO ONE (05:00)
== END 2019-11-17 14:00 | disposition other institution (70) | DRG 774 ==
LOC: YASAS 09:48 → Y3N 11:16
PROVIDERS: ADMIT Allergy & Immunology; ATTEND Allergy & Immunology
PROC: HZ2ZZZZ Detoxification Services for Substance Abuse Treatment (ICD-10-PCS; principal; 2019-11-14)
DX: F10.230 Alcohol dependence with withdrawal, uncomplicated (principal); F14.20 Cocaine dependence, uncomplicated; F12.20 Cannabis dependence, uncomplicated; F19.10 Other psychoactive substance abuse, uncomplicated; F16.10 Hallucinogen abuse, uncomplicated; F17.210 Nicotine dependence, cigarettes, uncomplicated; F25.9 Schizoaffective disorder, unspecified; E78.5 Hyperlipidemia, unspecified; E11.9 Type 2 diabetes mellitus without complications; Z79.84 Long term (current) use of oral hypoglycemic drugs; I10 Essential (primary) hypertension; J43.9 Emphysema, unspecified; R63.4 Abnormal weight loss; Z68.1 Body mass index [BMI] 19.9 or less, adult; Z87.81 Personal history of (healed) traumatic fracture; Z91.013 Allergy to seafood; Z91.19 Patient's noncompliance with other medical treatment and regimen
CPT/HCPCS: 36415; 80053; 82962; 85027; 86780; 86803; 87389; J0735; U0003